=== PATIENT | male | born 1945 | race Caucasian/White ===

== ENCOUNTER 2020-02-04 14:32 | Emergency (ER) | payer MEDICARE, BC ==
[2020-02-04 14:48] VITALS: BP 127/59; PULSE 55
--- NOTE | 2020-02-04 16:13 | EDM.PDOC ---
ED HPI GENERAL MEDICAL PROBLEM - General Chief Complaint: Respiratory Problem Stated Complaint: COVID SYMPTOMS Time Seen by Provider: 02/04/20 14:48 Source of Information: Reports: Patient, RN Notes Reviewed History Limitations: Reports: No Limitations - History of Present Illness INITIAL COMMENTS - FREE TEXT/NARRATIVE: Patient is a 74 year old male presenting to the ER with c/o a 2 week hx of mild cough and fatigue. He states that he came to town for a [place]day [place] and started feeling ill shortly thereafter. He describes his cough as mild and occasional. It is productive; howevver, he is unsure of the color of the sputum. He denies feeling SOB, but states that he has little energy. He spends most of the day sitting in his recliner due to lack of energy. He had some diarrhea 4 days ago, but has had none since. He has ocasional headaches with exertion, that resolve with rest. He denies fever, chills, chest pain, dizziness, SOB, abdominal pain, nausea or vomiting. - Related Data Allergies Allergy/AdvReac Type Severity Reaction Status Date / Time No Known Allergies Allergy Verified 02/04/20 14:48 Home Meds: Home Meds Allopurinol [Zyloprim] 50 mg PO DAILY 10/03/14 [History] Furosemide 0 mg PO DAILY 10/03/14 [History] Insulin Aspart [NovoLOG] 4 units SQ BID 10/03/14 [History] Insulin Detemir [Levemir] 12 units SUBCUT WITHBREAKFAST 10/03/14 [History] Tamsulosin HCl 0.4 mg PO DAILY 10/03/14 [History] amLODIPine Besylate [Amlodipine Besylate] 10 mg PO DAILY 10/03/14 [History] atorvaSTATin [Lipitor] 40 mg PO DAILY 10/03/14 [History] carvediloL [Carvedilol] 6.25 mg PO BID 10/03/14 [History] Finasteride 5 mg PO DAILY 02/04/20 [History] dexAMETHasone [Dexamethasone] 6 mg PO BID 4 Days #8 tab 02/04/20 [Rx] Past Medical History HEENT History: Reports: Cataract, Impaired Vision Other HEENT History: glasses Cardiovascular History: Reports: Bypass, CAD, High Cholesterol, Hypertension, [place] Gastrointestinal History: Reports: Other (See Below) Other Gastrointestinal History: constipation Genitourinary History: Reports: BPH Other Genitourinary History: enlarged prostate Musculoskeletal History: Reports: Amputation, Gout Other Musculoskeletal History: large toe right foot amputated Endocrine/Metabolic History: Reports: Diabetes, Type II, Obesity/BMI 30+ - Infectious Disease History Infectious Disease History: Reports: Measles, Mumps - Past Surgical History HEENT Surgical History: Reports: Cataract Surgery Other Cardiovascular Surgeries/Procedures: 4 bypasses Musculoskeletal Surgical History: Reports: Amputation Social & Family History - Family History Family Medical History: Noncontributory - Tobacco Use Tobacco Use Status *Q: Never Tobacco User - Caffeine Use Caffeine Use: Reports: Soda - Recreational Drug Use Recreational Drug Use: No ED ROS GENERAL - Review of Systems Review Of Systems: See Below Constitutional: Reports: Fatigue. Denies: Fever, Chills HEENT: Reports: No Symptoms Respiratory: Reports: Cough, Sputum. Denies: Shortness of Breath, Pleuritic Chest Pain Cardiovascular: Reports: No Symptoms. Denies: Chest Pain, Dyspnea on Exertion, Lightheadedness, Syncope Endocrine: Reports: No Symptoms GI/Abdominal: Reports: Diarrhea. Denies: Abdominal Pain, Nausea, Vomiting : Reports: No Symptoms Musculoskeletal: Reports: No Symptoms Skin: Reports: No Symptoms Neurological: Reports: Headache. Denies: Confusion, Dizziness Psychiatric: Reports: No Symptoms Hematologic/Lymphatic: Reports: No Symptoms Immunologic: Reports: No Symptoms ED EXAM, GENERAL - Physical Exam Exam: See Below General Appearance: Alert, WD/WN, No Apparent Distress Respiratory/Chest: No Respiratory Distress, Lungs Clear, Normal Breath Sounds, No Accessory Muscle Use, Chest Non-Tender Cardiovascular: Normal Peripheral Pulses, Regular Rate, Rhythm, No Edema, No Gallop, No JVD, No Murmur, No Rub GI/Abdominal: Normal Bowel Sounds, Soft, Non-Tender, No Organomegaly, No Distention, No Abnormal Bruit, No Mass Neurological: Alert, Oriented, CN II-XII Intact, Normal Cognition, Normal Gait, Normal Reflexes, No Motor/Sensory Deficits Psychiatric: Normal Affect, Normal Mood Skin Exam: Warm, Dry, Intact, Normal Color, No Rash #1 Interpretation EKG Date: 02/04/20 Time: 15:07 Rhythm: NSR Rate (Beats/Min): 56 Roann: Normal P-Wave: Present QRS: RBBB ST-T: Normal QT: Normal Course - Vital Signs Last Recorded V/S: Last Vital Signs Temp 97.8 F 02/04/20 14:45 Pulse 55 L 02/04/20 14:45 Resp 16 02/04/20 14:45 BP 127/59 L 02/04/20 14:45 Pulse Ox 92 L 02/04/20 14:45 - Orders/Labs/Meds Orders: Active Orders 24 hr Category Date Time Status Chest 1V Frontal [CR] Stat Exams 02/04/20 14:50 Taken UA W/MICROSCOPIC [URIN] Stat Lab 02/04/20 16:14 Ordered Isolation [COMM] Routine Oth 02/04/20 14:51 Ordered Labs: Laboratory Tests 02/04/20 02/04/20 02/04/20 Range/Units 15:00 15:00 15:00 WBC 9.08 H (4.23-9.07) K/mm3 RBC 3.59 L (4.63-6.08) M/mm3 Hgb 11.2 L D (13.7-17.5) gm/dl Hct 33.6 L (40.1-51.0) % MCV 93.6 H (79.0-92.2) fl MCH 31.2 (25.7-32.2) pg MCHC 33.3 (32.2-35.5) g/dl RDW Std Deviation 43.7 (35.1-43.9) fL Plt Count 324 D (163-337) K/mm3 MPV 9.4 (9.4-12.3) fl Neut % (Auto) 69.0 H (34.0-67.9) % Lymph % (Auto) 13.7 L (21.8-53.1) % [place] % (Auto) 14.3 H (5.3-12.2) % Eos % (Auto) 2.6 (0.8-7.0) Baso % (Auto) 0.3 (0.1-1.2) % Neut # (Auto) 6.26 H (1.78-5.38) K/mm3 Lymph # (Auto) 1.24 L (1.32-3.57) K/mm3 [place] # (Auto) 1.30 H (0.30-0.82) K/mm3 Eos # (Auto) 0.24 (0.04-0.54) K/mm3 Baso # (Auto) 0.03 (0.01-0.08) K/mm3 D-Dimer, Quantitative (0.19-0.50) mg/L Sodium 141 (136-145) mEq/L Potassium 3.6 (3.5-5.1) mEq/L Chloride 104 (98-107) mEq/L Carbon Dioxide 25 (21-32) mEq/L Anion Gap 15.6 H (5-15) BUN 41 H (7-18) mg/dL Creatinine 2.5 H (0.7-1.3) mg/dL Est Cr Clr Drug Dosing 25.53 mL/min Estimated GFR (MDRD) 25 (>60) mL/min BUN/Creatinine Ratio 16.4 (14-18) Glucose 146 H (83-115) mg/dL Lactic Acid (0.4-2.0) mmol/L Calcium 9.5 (8.5-10.1) mg/dL Ferritin (26-388) ng/ml Total Bilirubin 0.7 (0.2-1.0) mg/dL AST 24 (15-37) U/L ALT 26 (16-63) U/L Alkaline Phosphatase 72 (46-116) U/L Lactate Dehydrogenase (85-227) U/L Troponin I < 0.017 (0.00-0.056) ng/mL C-Reactive Protein 14.8 H* (<1.0) mg/dL NT-Pro-B Natriuret Pep 1018 H (0-450) pg/mL Total Protein 7.7 (6.4-8.2) g/dl Albumin 2.8 L (3.4-5.0) g/dl Globulin 4.9 gm/dL Albumin/Globulin Ratio 0.6 L (1-2) SARS-CoV-2 RNA (SARAH) (NEGATIVE) 02/04/20 02/04/20 02/04/20 Range/Units 15:00 15:00 15:00 WBC (4.23-9.07) K/mm3 RBC (4.63-6.08) M/mm3 Hgb (13.7-17.5) gm/dl Hct (40.1-51.0) % MCV (79.0-92.2) fl MCH (25.7-32.2) pg MCHC (32.2-35.5) g/dl RDW Std Deviation (35.1-43.9) fL Plt Count (163-337) K/mm3 MPV (9.4-12.3) fl Neut % (Auto) (34.0-67.9) % Lymph % (Auto) (21.8-53.1) % [place] % (Auto) (5.3-12.2) % Eos % (Auto) (0.8-7.0) Baso % (Auto) (0.1-1.2) % Neut # (Auto) (1.78-5.38) K/mm3 Lymph # (Auto) (1.32-3.57) K/mm3 [place] # (Auto) (0.30-0.82) K/mm3 Eos # (Auto) (0.04-0.54) K/mm3 Baso # (Auto) (0.01-0.08) K/mm3 D-Dimer, Quantitative 6.06 H (0.19-0.50) mg/L Sodium (136-145) mEq/L Potassium (3.5-5.1) mEq/L Chloride (98-107) mEq/L Carbon Dioxide (21-32) mEq/L Anion Gap (5-15) BUN (7-18) mg/dL Creatinine (0.7-1.3) mg/dL Est Cr Clr Drug Dosing mL/min Estimated GFR (MDRD) (>60) mL/min BUN/Creatinine Ratio (14-18) Glucose (83-115) mg/dL Lactic Acid 1.4 (0.4-2.0) mmol/L Calcium (8.5-10.1) mg/dL Ferritin 1531 H (26-388) ng/ml Total Bilirubin (0.2-1.0) mg/dL AST (15-37) U/L ALT (16-63) U/L Alkaline Phosphatase (46-116) U/L Lactate Dehydrogenase (85-227) U/L Troponin I (0.00-0.056) ng/mL C-Reactive Protein (<1.0) mg/dL NT-Pro-B Natriuret Pep (0-450) pg/mL Total Protein (6.4-8.2) g/dl Albumin (3.4-5.0) g/dl Globulin gm/dL Albumin/Globulin Ratio (1-2) SARS-CoV-2 RNA (SARAH) (NEGATIVE) 02/04/20 02/04/20 Range/Units 15:00 16:19 WBC (4.23-9.07) K/mm3 RBC (4.63-6.08) M/mm3 Hgb (13.7-17.5) gm/dl Hct (40.1-51.0) % MCV (79.0-92.2) fl MCH (25.7-32.2) pg MCHC (32.2-35.5) g/dl RDW Std Deviation (35.1-43.9) fL Plt Count (163-337) K/mm3 MPV (9.4-12.3) fl Neut % (Auto) (34.0-67.9) % Lymph % (Auto) (21.8-53.1) % [place] % (Auto) (5.3-12.2) % Eos % (Auto) (0.8-7.0) Baso % (Auto) (0.1-1.2) % Neut # (Auto) (1.78-5.38) K/mm3 Lymph # (Auto) (1.32-3.57) K/mm3 [place] # (Auto) (0.30-0.82) K/mm3 Eos # (Auto) (0.04-0.54) K/mm3 Baso # (Auto) (0.01-0.08) K/mm3 D-Dimer, Quantitative (0.19-0.50) mg/L Sodium (136-145) mEq/L Potassium (3.5-5.1) mEq/L Chloride (98-107) mEq/L Carbon Dioxide (21-32) mEq/L Anion Gap (5-15) BUN (7-18) mg/dL Creatinine (0.7-1.3) mg/dL Est Cr Clr Drug Dosing mL/min Estimated GFR (MDRD) (>60) mL/min BUN/Creatinine Ratio (14-18) Glucose (83-115) mg/dL Lactic Acid (0.4-2.0) mmol/L Calcium (8.5-10.1) mg/dL Ferritin (26-388) ng/ml Total Bilirubin (0.2-1.0) mg/dL AST (15-37) U/L ALT (16-63) U/L Alkaline Phosphatase (46-116) U/L Lactate Dehydrogenase 224 (85-227) U/L Troponin I (0.00-0.056) ng/mL C-Reactive Protein (<1.0) mg/dL NT-Pro-B Natriuret Pep (0-450) pg/mL Total Protein (6.4-8.2) g/dl Albumin (3.4-5.0) g/dl Globulin gm/dL Albumin/Globulin Ratio (1-2) SARS-CoV-2 RNA (SARAH) Positive H (NEGATIVE) - Re-Assessments/Exams Free Text/Narrative Re-Assessment/Exam: 02/04/20 17:33Patient is a 74-year-old male presenting to the emergency department with complaints of fatigue, occasional active cough, and occasional headache. Symptoms have been present for just under 2 weeks. He states 2 weeks ago tomorrow he went to a birthday libertarian and went shopping in town here. Since that time he has been at home. His symptoms are concerning for diagnosis of Covid, therefore we will complete a complete Covid work-up including CBC, CMP, CRP, troponin, D-dimer, ferritin, LDH, chest x-ray, EKG, influenza test, and COVID-19 test. 02/04/20 17:37 Hematology significant for WBC minimally elevated at 9.08, hemoglobin 11.2, D- dimer 6.06, anion gap 15.6, BUN 41, creatinine 2.5, ferritin 1531, CRP 14.8, proBNP 1018. Chest x-ray showed right airspace disease, possibly involving multiple lobes suspicious for pneumonia. No pulmonary edema. Influenza screen was negative, however coronavirus test was positive. Patient's D-dimer is significant elevated at 6.06, however he does have stage IV kidney failure as well as a positive Covid test which is likely the cause of this. Patient is not tachycardic or hypoxic, therefore a CT scan of his chest is not indicated at th is time. Oxygen saturations have maintained between 90 to 95% on room air throughout his stay in the ER. We will start him on dexamethasone due to his chronic underlying conditions and age. Recommend that he purchase a pulse oximeter to monitor his oxygen saturations at home. Discussed strict return precautions with him and he verbalized understanding. We have called [facility] and they do have pulse oximeter is available. I will send his prescription for dexamethasone there so that he may slat pickler a pulse oximeter on his way back to [place]. Discharge instructions as documented. Departure - Departure Time of Disposition: 17:38 Disposition: Home, Self-Care 01 Condition: Good Clinical Impression: COVID-19 - Discharge Information *PRESCRIPTION DRUG MONITORING PROGRAM REVIEWED*: No *COPY OF PRESCRIPTION DRUG MONITORING REPORT IN PATIENT BUFFY: No Prescriptions: dexAMETHasone [Dexamethasone] 6 mg PO BID 4 Days #8 tab Instructions: COVID-19 Frequently Asked Questions, COVID-19 Referrals: PCP,None [Primary Care Provider] - Forms: ED Department Discharge Additional Instructions: You were seen in the emergency department today for fatigue, occasional cough, and occasional headache. Your work-up included blood work, chest x-ray, an EKG, and influenza and coronavirus test. Results of your work-up show that you do have COVID-19. Your oxygen saturations throughout your stay in the emergency department were normal. You have been started on a steroid, dexamethasone, to help treat the inflammation associated with COVID-19. This prescription has been sent to [facility]. We did call up there and they also have a pulse oximeter available, therefore you should purchase that when you slat pickler your medication. Recommend that you check your oxygen saturations at home intermittently throughout the day. If you are maintaining an oxygen saturation below 90%, you should return to the emergency department for reevaluation. Also if you experience any other new or worsening symptoms of concern, please return to the emergency department to be reevaluated. Sepsis Event Note (ED) - Evaluation Sepsis Screening Result: No Definite Risk - Focused Exam Vital Signs: Vital Signs Temp Pulse Resp BP Pulse Ox 02/04/20 14:45 97.8 F 55 L 16 127/59 L 92 L - My Orders Last 24 Hours: My Active Orders 02/04/20 14:50 Chest 1V Frontal [CR] Stat 02/04/20 14:51 Isolation [COMM] Routine 02/04/20 16:14 UA W/MICROSCOPIC [URIN] Stat - Assessment/Plan Last 24 Hours: My Active Orders 02/04/20 14:50 Chest 1V Frontal [CR] Stat 02/04/20 14:51 Isolation [COMM] Routine 02/04/20 16:14 UA W/MICROSCOPIC [URIN] Stat
== END 2020-02-04 18:25 | disposition home or self-care (01) ==
LOC: JD.ED 14:32
DX: U07.1 COVID-19 (principal); I25.10 Atherosclerotic heart disease of native coronary artery without angina pectoris; E78.00 Pure hypercholesterolemia, unspecified; I10 Essential (primary) hypertension; I25.2 Old myocardial infarction; M10.9 Gout, unspecified; E11.9 Type 2 diabetes mellitus without complications; E66.9 Obesity, unspecified; Z95.1 Presence of aortocoronary bypass graft; Z79.4 Long term (current) use of insulin; Z79.899 Other long term (current) drug therapy
CPT/HCPCS: 36415; 71045; 80053; 82728; 83605; 83615; 83880; 84484; 85025; 85379; 86140; 87804; 93005; 99284; U0002; 93010; 99283

== ENCOUNTER 2020-09-27 17:54 | Emergency (ER) | payer MEDICARE, BC ==
[2020-09-27 18:06] VITALS: BP 174/79; PULSE 72
--- NOTE | 2020-09-27 18:40 | EDM.PDOC ---
ED HPI GENERAL MEDICAL PROBLEM - General Chief Complaint: Lower Extremity Injury/Pain Stated Complaint: hip pain Time Seen by Provider: 09/27/20 18:26 Source of Information: Reports: Patient History Limitations: Reports: No Limitations - History of Present Illness INITIAL COMMENTS - FREE TEXT/NARRATIVE: 75-year-old male presents to the ED complaining of left hip pain. No known injuries or falls. He states he awoke this morning and had difficulty weightbearing particularly feeling it along his posterior buttock. Over the last 6 to 8 hours the pain is progressively worsened. No relief with 1 Advil 200 mg strength tablet. 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 He states the first step is approximately 2 feet off the ground and he has to step up with that leg and then pull with his arms to get up into the sprayer causing a lot of pressure to be placed on the left lower extremity to get up into the machine. He has no known arthritis and no prosthesis of either hip. He denies being on blood thinners. He has a history of gout and is on allopurinol for this. He has not had a gout attack for several years. It usually bothered his feet and toes. He denies any fever chills. He states he is having pain in his posterior buttock hip area at rest but is made worse with walking and weightbearing Onset: Gradual Onset Date: 09/26/20 (Very minimal discomfort left posterior buttock hip area yet last evening but much worse this morning upon getting up and worse as the day is gone on) Duration: Hour(s):, Getting Worse Location: Reports: Lower Extremity, Left (But talk posterior hip pain) Quality: Reports: Ache, Throbbing Severity: Moderate Improves with: Reports: Rest (Slightly better with rest but still having discomfort at rest.) Worsens with: Reports: Other Context: Denies: Activity (Weightbearing and walking cause worsening of pain), Exercise, Lifting, Sick Contact, Trauma, Other Associated Symptoms: Denies: No Other Symptoms, Confusion, Chest Pain, Cough, cough w sputum, Diaphoresis, Fever/Chills, Headaches, Loss of Appetite, Malaise, Nausea/Vomiting, Rash, Seizure, Shortness of Breath, Syncope, Weakness Treatments [employer]IL [employer]ATION [employer]ATOR: Reports: NSAIDS (Patient took 1 Advil 200 mg strength today with no relief of pain.) Left Hip Pain Score (Numeric/FACES): 10 - Related Data Allergies Allergy/AdvReac Type Severity Reaction Status Date / Time No Known Allergies Allergy Verified 09/27/20 18:06 Home Meds: Home Meds Allopurinol [Zyloprim] 50 mg PO DAILY 10/03/14 [History] Furosemide 0 mg PO DAILY 10/03/14 [History] Insulin Aspart [NovoLOG] 4 units SQ BID 10/03/14 [History] Insulin Detemir [Levemir] 12 units SUBCUT WITHBREAKFAST 10/03/14 [History] Tamsulosin HCl 0.4 mg PO DAILY 10/03/14 [History] amLODIPine Besylate [Amlodipine Besylate] 10 mg PO DAILY 10/03/14 [History] atorvaSTATin [Lipitor] 40 mg PO DAILY 10/03/14 [History] carvediloL [Carvedilol] 6.25 mg PO BID 10/03/14 [History] Finasteride 5 mg PO DAILY 02/04/20 [History] dexAMETHasone [Dexamethasone] 6 mg PO BID 4 Days #8 tab 02/04/20 [Rx] Hydrocodone/Acetaminophen [Hydrocodone-Acetamin 5-325 mg] 1 each PO Q6H PRN #15 tablet 09/27/20 [Rx] predniSONE [Prednisone] 20 mg PO ASDIRECTED #12 tablet 09/27/20 [Rx] Past Medical History HEENT History: Reports: Cataract, Impaired Vision Other HEENT History: glasses Cardiovascular History: Reports: Bypass, CAD, High Cholesterol, Hypertension, NM Gastrointestinal History: Reports: Other (See Below) Other Gastrointestinal History: constipation Genitourinary History: Reports: BPH Other Genitourinary History: enlarged prostate Musculoskeletal History: Reports: Amputation, Gout Other Musculoskeletal History: large toe right foot amputated Endocrine/Metabolic History: Reports: Diabetes, Type II (Controlled with Levemir 12 units subcu in the a.m. and 4 units of regular insulin with meals), Obesity/BMI 30+ - Infectious Disease History Infectious Disease History: Reports: Measles, Mumps Other Infectious Disease History: Patient had COVID-19 illness diagnosed February 04, 2020 - Past Surgical History HEENT Surgical History: Reports: Cataract Surgery Other Cardiovascular Surgeries/Procedures: 4 bypasses Musculoskeletal Surgical History: Reports: Amputation Social & Family History - Family History Family Medical History: No Pertinent Family History - Tobacco Use Tobacco Use Status *Q: Never Tobacco User - Caffeine Use Caffeine Use: Reports: Soda - Recreational Drug Use Recreational Drug Use: No - Living Situation & Occupation Living situation: Reports: Single 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 Denies: Chest Pain, Irregular Heart Rate, Lightheadedness GI/Abdominal: Reports: No Symptoms Genitourinary: Reports: Other (Frequency nocturia x3 known BPH) Musculoskeletal: Reports: Neck Pain, Shoulder Pain, Back Pain, Other (History of gout involving his feet) Skin: Reports: No Symptoms Neurological: Reports: No Symptoms Psychiatric: Reports: No Symptoms ED EXAM, GENERAL - Physical Exam Exam: See Below Exam Limited By: No Limitations General Appearance: Alert, WD/WN, No Apparent Distress, Other (Temperature is 36.5 degrees. Heart rate 72 and sinus. Respiratory is 18 with O2 sats of 95 to 96% room air. BP slightly elevated systolically at 174/79.) Eye Exam: Bilateral Eye: Normal Inspection (No scleral icterus or blepharal pallor.) Respiratory/Chest: No Respiratory Distress, Lungs Clear, No Accessory Muscle Use, Decreased Breath Sounds (Breath sounds are slightly diminished to both lower lung robert without any adventitial sounds). No: Rales, Rhonchi, Wheezing Cardiovascular: Regular Rate, Rhythm, No Edema, No Gallop, No Murmur, No Rub. No: Normal Peripheral Pulses Peripheral Pulses: 1+: Posterior Tibial (L), Posterior Tibial (R), Dorsalis Pedis (L), Dorsalis Pedis (R), 2+: Carotid (L), Carotid (R) GI/Abdominal: Normal Bowel Sounds, Soft, Non-Tender, No Organomegaly, No Distention, No Abnormal Bruit, Other. No: Guarding (Mild obesity. Nontender), Rigid, Rebound, Tender Back Exam: Decreased Range of Motion, Other (Patient has very little pain on firm palpation over his facet joints lumbar spine. On standing at the bedside he has marked pain throughout the superior two thirds of the left sacroiliac joint as compared to the right. Very minimal tenderness over the greater tuberosity on the left hip. This is a). No: CVA Tenderness (L), CVA Tenderness (R) Extremities: Normal Inspection, Non-Tender, No Pedal Edema, Other (Patient has no evidence of significant arthritic changes in his knees. He has very minimal limited external and internal rotation of both hips with no worsening of his pain on this range of motion. His true hip joints are not the source of his pain) Neurological: Alert, Oriented, CN II-XII Intact, Normal Cognition, Other (Limping gait) Psychiatric: Normal Affect, Normal Mood Skin Exam: Warm, Dry, Intact, Normal Color, No Rash Course - Vital Signs Last Recorded V/S: Last Vital Signs Temp 36.5 C 09/27/20 18:03 Pulse 72 09/27/20 18:03 Resp 18 09/27/20 18:03 BP 174/79 H 09/27/20 18:03 Pulse Ox 95 09/27/20 18:03 - Orders/Labs/Meds Orders: Active Orders 24 hr Category Date Time Status Pelvis 1V or 2V [CR] Stat Exams 09/27/20 18:33 Taken - Radiology Interpretation Free Text/Narrative:: 75-year-old male presents to the ED complaining of left hip pain. He states was a little sore last night before going to bed but much more tender and sore today making it difficult to walk since doing chores this morning. It is slowly gotten worse as the day is gone on. On examination he has near full range of motion of both hips with very minimal loss of external rotation bilaterally with no pain in the true hip joint. I can also logroll both hips and knees without any pain in his true hip joint.. Minimal tenderness over the greater trochanteric process left hip. No pain in the sacroiliac joint bilaterally. Mild tenderness over the ischial tuberosity and along the posterior iliac crest at the insertion site of his hamstring muscles. 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 Clinically he appears to have strained or pulled his hamstring muscles in the left posterior thigh buttock area. An AP view of his pelvis will be obtained. - Re-Assessments/Exams Free Text/Narrative Re-Assessment/Exam: 09/27/20 19:00: X-ray of the patient's pelvis reveals no abnormalities within the true pelvis and no osteolytic lesions or signs of Paget's disease. He does have mild degenerative arthritic change in both hip joints particularly inferior aspects of both hip joints with loss of cartilage and near [id number] situation. On repeat examination of the patient standing his pain is coming from his left sacroiliac joint particular the superior two thirds of the joint. I am therefore going to place him on [place] tablets 5/325 mg strength 1 tablet every 6 hours as necessary for pain relief. I am also going to place him on prednisone 20 mg twice daily with breakfast and supper for 4 days and then once in the morning only for another 4 days to alleviate inflammation. NSAIDs are contraindicated due to stage IV renal insufficiency secondary to diabetic nephropathy. He states his sugars did go high when he was treated with dexamethasone last January for Covid but he was able to cope with this with higher doses of regular insulin and he will do this again. Failing treatment with short course of steroid he may require a direct injection of Kenalog into the SI joint which could be performed by Dr. Montero or Dr. Garza. Departure - Departure Time of Disposition: 19:05 Disposition: Home, Self-Care 01 Condition: Fair Clinical Impression: Sacroiliitis - Discharge Information *PRESCRIPTION DRUG MONITORING PROGRAM REVIEWED*: Not Applicable *COPY OF PRESCRIPTION DRUG MONITORING REPORT IN PATIENT BUFFY: Not Applicable Prescriptions: Hydrocodone/Acetaminophen [Hydrocodone-Acetamin 5-325 mg] 1 each PO Q6H PRN #15 tablet PRN Reason: pain relief predniSONE [Prednisone] 20 mg PO ASDIRECTED #12 tablet Instructions: Hamstring Strain Referrals: Talib Brewer MD [Primary Care Provider] - Forms: ED Department Discharge Additional Instructions: Evaluation in the emergency room today in regards to complaints of left hip pain starting a little bit last evening but much worse this morning after getting up and trying to do chores outside. On examination your true hip joint has no signs of inflammation with only slight loss of normal range of motion both internally and externally which should be normal for your age. Examination in the standing position revealed that the pain was coming from the left sacroiliac joint where your pelvis joins onto your back bone or sacrum. An x-ray of your pelvis reveals no disease process involving the bones other than mild arthritis in the lower portions of both hip joints. Treatment is limited due to known poor kidney function secondary to chronic diabetes. He cannot take medicines like Motrin, Aleve or other nonsteroidal anti-inflammatory medicines because they are very bad for your kidneys. Decision made to place you on low-dose prednisone starting with 20 mg in the morning and at suppertime for 4 days and then 1 tablet only in the morning for another 4 days to relieve pain and inflammation left SI joint. You may also use pain medication Hydrocodone 5/325mg -1 tablet every 6 hours as needed for pain relief. The prednisone should start to work in approximately 36 to 48 hours to relieve a good portion of your pain as the inflammation settles down. I would anticipate that this will take about 10 days to settle down completely. If you are not completely back to normal in 10 days time this joint could be injected directly with steroid. I would suggest follow-up with Dr. Garza orthopedic surgeon for this procedure. You could call his office at [phone] to arrange an appointment. Sepsis Event Note (ED) - Evaluation Sepsis Screening Result: No Definite Risk - Focused Exam Vital Signs: Vital Signs Temp Pulse Resp BP Pulse Ox 09/27/20 18:03 36.5 C 72 18 174/79 H 95 - My Orders Last 24 Hours: My Active Orders 09/27/20 18:33 Pelvis 1V or 2V [CR] Stat - Assessment/Plan Last 24 Hours: My Active Orders 09/27/20 18:33 Pelvis 1V or 2V [CR] Stat
--- NOTE | 2020-09-27 20:06 | CR ---
Pelvis: AP view of the pelvis was obtained. Comparison: No prior pelvis exam is available. Joint spaces within both hips are maintained. Degenerative change is partially seen within the lower lumbar spine. Sacroiliac joints appear within normal limits. No acute fracture or other abnormality is appreciated. Impression: 1. Degenerative change is partially seen within the lower lumbar spine. 2. AP pelvis study is otherwise unremarkable. Diagnostic code #2
== END 2020-09-27 19:22 | disposition home or self-care (01) ==
LOC: JD.ED 17:54
DX: M46.1 Sacroiliitis, not elsewhere classified (principal); I25.10 Atherosclerotic heart disease of native coronary artery without angina pectoris; E78.00 Pure hypercholesterolemia, unspecified; I10 Essential (primary) hypertension; I25.2 Old myocardial infarction; E11.9 Type 2 diabetes mellitus without complications; E66.9 Obesity, unspecified; Z68.30 Body mass index [BMI] 30.0-30.9, adult; Z86.16 Personal history of COVID-19; Z79.4 Long term (current) use of insulin; Z79.899 Other long term (current) drug therapy
CPT/HCPCS: 72170; 72170-26; 99283; 99283-25

== ENCOUNTER 2020-10-11 11:19 | Emergency (ER) | payer MEDICARE, BC ==
[2020-10-11 11:38] VITALS: BP 175/85; PULSE 66
--- NOTE | 2020-10-11 11:58 | EDM.PDOC ---
ED HPI GENERAL MEDICAL PROBLEM - General Chief Complaint: Lower Extremity Injury/Pain Stated Complaint: LT HIP/LEG PAIN Time Seen by Provider: 10/11/20 11:34 Source of Information: Reports: Patient History Limitations: Reports: No Limitations - History of Present Illness INITIAL COMMENTS - FREE TEXT/NARRATIVE: 75 yo M with L low back/hip/leg pain. He has had it for at least a couple of weeks, it isn't getting better. No known injury. Seen here and thought to have hamstring strain and SI joint inflammation. Rx prednisone taper and hydrocodone. He didn't feel like the prednisone helped. Hydrocodone helped but he is out of this medication. Pain is in very low back on the left, no midline pain. Also in lateral hip and groin area. Pain is much worse with walking and better with rest. However, pain last night was severe enough he couldn't sleep. He doesn't have pain radiating down his legs. He denies additional pain. No fever/recent illness. He is able to ambulate but is starting to slightly limp. No falls. No relief with acetaminophen alone. Left Hip Pain Score (Numeric/FACES): 9 - Related Data Allergies Allergy/AdvReac Type Severity Reaction Status Date / Time No Known Allergies Allergy Verified 10/11/20 11:27 Home Meds: Home Meds Allopurinol [Zyloprim] 50 mg PO DAILY 10/03/14 [History] Furosemide 0 mg PO DAILY 10/03/14 [History] Insulin Aspart [NovoLOG] 4 units SQ BID 10/03/14 [History] Insulin Detemir [Levemir] 12 units SUBCUT WITHBREAKFAST 10/03/14 [History] Tamsulosin HCl 0.4 mg PO DAILY 10/03/14 [History] amLODIPine Besylate [Amlodipine Besylate] 10 mg PO DAILY 10/03/14 [History] atorvaSTATin [Lipitor] 40 mg PO DAILY 10/03/14 [History] carvediloL [Carvedilol] 6.25 mg PO BID 10/03/14 [History] Finasteride 5 mg PO DAILY 02/04/20 [History] Hydrocodone/Acetaminophen [Hydrocodone-Acetamin 5-325 mg] 1 each PO QID PRN #15 tablet 10/11/20 [Rx] Past Medical History HEENT History: Reports: Cataract, Impaired Vision Other HEENT History: glasses Cardiovascular History: Reports: Bypass, CAD, High Cholesterol, Hypertension, MD Respiratory History: Reports: None Gastrointestinal History: Reports: Other (See Below) Other Gastrointestinal History: constipation Genitourinary History: Reports: BPH Other Genitourinary History: enlarged prostate Musculoskeletal History: Reports: Amputation, Gout Other Musculoskeletal History: large toe right foot amputated Neurological History: Reports: None Psychiatric History: Reports: None Endocrine/Metabolic History: Reports: Diabetes, Type II, Obesity/BMI 30+ Hematologic History: Reports: None Immunologic History: Reports: None Oncologic (Cancer) History: Reports: None Dermatologic History: Reports: None - Infectious Disease History Infectious Disease History: Reports: Chicken Pox, Measles, Mumps, Novel Coronavirus Other Infectious Disease History: Patient had COVID-19 illness diagnosed February 04, 2020 - Past Surgical History HEENT Surgical History: Reports: Cataract Surgery Other Cardiovascular Surgeries/Procedures: 4 bypasses Male Surgical History: Reports: None Musculoskeletal Surgical History: Reports: Amputation Social & Family History - Family History Family Medical History: No Pertinent Family History - Caffeine Use Caffeine Use: Reports: Soda - Recreational Drug Use Recreational Drug Use: No - Living Situation & Occupation Living situation: Reports: Single 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) Review of Systems - Review of Systems Review Of Systems: See Below Constitutional: Denies: Fever Eyes: Reports: No Symptoms Ears: Reports: No Symptoms Nose: Reports: No Symptoms Mouth/Throat: Reports: No Symptoms Respiratory: Reports: No Symptoms Cardiovascular: Reports: No Symptoms GI/Abdominal: Reports: No Symptoms Genitourinary: Reports: No Symptoms Musculoskeletal: Reports: Back Pain Skin: Reports: No Symptoms Neurological: Denies: Numbness, Weakness Psychiatric: Reports: No Symptoms ED EXAM, GENERAL - Physical Exam Exam: See Below Exam Limited By: No Limitations General Appearance: Alert, WD/WN, No Apparent Distress Eye Exam: Bilateral Eye: Normal Inspection Ears: Normal External Exam Nose: Normal Inspection Throat/Mouth: Normal Inspection, Normal Oropharynx, Normal Voice Head: Atraumatic, Normocephalic Neck: Normal Inspection Respiratory/Chest: No Respiratory Distress Cardiovascular: Normal Peripheral Pulses, Regular Rate, Rhythm, No Edema GI/Abdominal: Soft, Non-Tender, No Distention Back Exam: Normal Inspection, Other (+mild paraspinal TTP of L distal lumbar spine area and SI joint area, no skin abnormality no palpable mass, straight leg neg). No: Vertebral Tenderness Extremities: Normal Inspection, Normal Range of Motion, Other (+lateral L hip TTP over greater trochanter, no anterior hip TTP, good ROM at the hip, no knee TTP, distal motor/sensation/perfusion intact, 2+DP pulse) Neurological: Alert, Oriented, Normal Cognition, No Motor/Sensory Deficits Psychiatric: Normal Affect, Normal Mood Skin Exam: Warm, Dry, Intact, Normal Color, No Rash Course - Vital Signs Last Recorded V/S: Last Vital Signs Temp 37.0 C 10/11/20 11:35 Pulse 66 10/11/20 11:35 Resp 16 10/11/20 11:35 BP 175/85 H 10/11/20 11:35 Pulse Ox 100 10/11/20 11:35 - Re-Assessments/Exams Free Text/Narrative Re-Assessment/Exam: 10/11/20 14:15 L hip XR unremarkable, pelvis xr at prior visit was unremarkable. no bony abnormalities. no infectious symptoms. pain localized to SI area and lateral hip area. will refill hydrocodone for pain control, referred to ortho for further care. discussed ED return precautions. Departure - Departure Time of Disposition: 12:48 Disposition: Home, Self-Care 01 Clinical Impression: Left hip pain - Discharge Information Prescriptions: Hydrocodone/Acetaminophen [Hydrocodone-Acetamin 5-325 mg] 1 each PO QID PRN #15 tablet PRN Reason: Pain Instructions: Hip Pain Referrals: Talib Brewer MD [Primary Care Provider] - Forms: ED Department Discharge Additional Instructions: 1. Take acetaminophen for pain. Take hydrocodone as needed for severe pain, especially if pain is keeping you up at night. 2. Follow up with Dr. Garza or orthopedist of your choice. Call [phone] to schedule. 3. Return to the ED as needed for severe/uncontrolled pain, difficulty walking, fever, or other concerning symptoms Sepsis Event Note (ED) - Evaluation Sepsis Screening Result: No Definite Risk - Focused Exam Vital Signs: Vital Signs Temp Pulse Resp BP Pulse Ox 10/11/20 11:35 37.0 C 66 16 175/85 H 100
--- NOTE | 2020-10-11 12:29 | CR ---
Left hip: AP and frog leg lateral views of the left hip were obtained. Comparison: Prior pelvis study of 09/27/20. Joint space within the left hip is preserved. No fracture or other bony abnormality is seen. Impression: 1. Nothing acute is seen on 2 view left hip study. Diagnostic code #1
== END 2020-10-11 13:00 | disposition home or self-care (01) ==
LOC: JD.ED 11:19
DX: M25.552 Pain in left hip (principal); I25.10 Atherosclerotic heart disease of native coronary artery without angina pectoris; E78.00 Pure hypercholesterolemia, unspecified; I10 Essential (primary) hypertension; I25.2 Old myocardial infarction; E11.9 Type 2 diabetes mellitus without complications; E66.9 Obesity, unspecified; Z68.32 Body mass index [BMI] 32.0-32.9, adult; Z79.4 Long term (current) use of insulin; Z79.899 Other long term (current) drug therapy; Z95.1 Presence of aortocoronary bypass graft
CPT/HCPCS: 73502-26-LT; 73502-LT; 99283; 99283-25

== ENCOUNTER 2020-10-31 10:32 | Emergency (ER) | payer MEDICARE, BC ==
[2020-10-31 10:45] VITALS: BP 144/84; PULSE 66
--- NOTE | 2020-10-31 11:35 | EDM.PDOC ---
ED HPI GENERAL MEDICAL PROBLEM - General Chief Complaint: Lower Extremity Injury/Pain Stated Complaint: LEFT HIP PAIN Time Seen by Provider: 10/31/20 11:04 Source of Information: Reports: Patient, RN Notes Reviewed History Limitations: Reports: No Limitations - History of Present Illness INITIAL COMMENTS - FREE TEXT/NARRATIVE: Patient is a 75-year-old male presenting to the emergency department with complaints of low back pain that radiates down his left leg. He has been having problems with this for quite some time. He denies any known injuries to the area. He was seen in the walk-in clinic yesterday and prescribed meloxicam and tramadol for pain. He has been using these with little relief. He had been previously prescribed hydrocodone with Tylenol which he states is the only thing that takes the edge off the pain. He has seen a chiropractor who ordered an x- ray 6 days ago. Result this x-ray showed degenerative changes but no acute abnormalities. He is scheduled to see physical therapy on November 09. Has follow- up scheduled with his primary care provider, Dr. Corona, on November 20 which was his first available appointment. Denies any bowel or bladder dysfunction. Left Hip Pain Score (Numeric/FACES): 8 - Related Data Allergies Allergy/AdvReac Type Severity Reaction Status Date / Time No Known Allergies Allergy Verified 10/31/20 10:45 Home Meds: Home Meds Allopurinol [Zyloprim] 50 mg PO DAILY 10/03/14 [History] Furosemide 40 mg PO DAILY 10/03/14 [History] Insulin Aspart [NovoLOG] 4 units SQ BID 10/03/14 [History] Insulin Detemir [Levemir] 12 units SUBCUT WITHBREAKFAST 10/03/14 [History] Tamsulosin HCl 0.4 mg PO DAILY 10/03/14 [History] amLODIPine Besylate [Amlodipine Besylate] 10 mg PO DAILY 10/03/14 [History] atorvaSTATin [Lipitor] 40 mg PO DAILY 10/03/14 [History] carvediloL [Carvedilol] 6.25 mg PO BID 10/03/14 [History] Finasteride 5 mg PO DAILY 02/04/20 [History] Hydrocodone/Acetaminophen [Hydrocodone-Acetamin 5-325 mg] 1 each PO Q4H PRN #15 tablet 07/20/21 [Rx] Meloxicam 15 mg PO DAILY 10/31/20 [History] traMADol [Ultram] 1 tab PO ASDIRECTED PRN 10/31/20 [History] Past Medical History HEENT History: Reports: Cataract, Impaired Vision Other HEENT History: glasses Cardiovascular History: Reports: Bypass, CAD, High Cholesterol, Hypertension, [place] Respiratory History: Reports: None Gastrointestinal History: Reports: Other (See Below) Other Gastrointestinal History: constipation Genitourinary History: Reports: BPH Other Genitourinary History: enlarged prostate Musculoskeletal History: Reports: Amputation, Gout Other Musculoskeletal History: large toe right foot amputated Neurological History: Reports: None Psychiatric History: Reports: None Endocrine/Metabolic History: Reports: Diabetes, Type II, Obesity/BMI 30+ Hematologic History: Reports: None Immunologic History: Reports: None Oncologic (Cancer) History: Reports: None Dermatologic History: Reports: None - Infectious Disease History Infectious Disease History: Reports: Chicken Pox, Measles, Mumps, Novel Coronavirus Other Infectious Disease History: Patient had COVID-19 illness diagnosed February 04, 2020 - Past Surgical History HEENT Surgical History: Reports: Cataract Surgery Other Cardiovascular Surgeries/Procedures: 4 bypasses Male Surgical History: Reports: None Musculoskeletal Surgical History: Reports: Amputation Social & Family History - Family History Family Medical History: No Pertinent Family History - Tobacco Use Tobacco Use Status *Q: Former Tobacco User Used Tobacco, but Quit: Yes Month/Year Tobacco Last Used: 04/1979 - Caffeine Use Caffeine Use: Reports: Soda - Recreational Drug Use Recreational Drug Use: No - Living Situation & Occupation Living situation: Reports: Single 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 ED EXAM, GENERAL - Physical Exam Exam: See Below Exam Limited By: No Limitations General Appearance: Alert, WD/WN, No Apparent Distress Respiratory/Chest: No Respiratory Distress, Lungs Clear, Normal Breath Sounds, No Accessory Muscle Use, Chest Non-Tender Cardiovascular: Normal Peripheral Pulses, Regular Rate, Rhythm, No Edema, No Gallop, No JVD, No Murmur, No Rub Back Exam: Normal Inspection, Full Range of Motion, Vertebral Tenderness (L4- S2). No: CVA Tenderness (L), CVA Tenderness (R), Paraspinal Tenderness Neurological: Alert, Oriented, CN II-XII Intact, Normal Cognition, Normal Gait, Normal Reflexes, No Motor/Sensory Deficits Psychiatric: Normal Affect, Normal Mood Skin Exam: Warm, Dry, Intact, Normal Color, No Rash Course - Vital Signs Last Recorded V/S: Last Vital Signs Temp 97.5 F 10/31/20 10:39 Pulse 66 10/31/20 10:39 Resp 18 10/31/20 10:39 BP 144/84 H 10/31/20 10:39 Pulse Ox 99 10/31/20 10:39 - Re-Assessments/Exams Free Text/Narrative Re-Assessment/Exam: Patient is a 75-year-old male presenting to the emergency department with complaints of low back pain with radiation down his left leg and hip. Reports that he has been having problems with this for quite some time. He has had no new injuries to the area. X-ray was completed 6 days ago and shows degenerative changes but no acute abnormalities. Was seen in walk-in yesterday started on meloxicam and tramadol. States this is not helping. On exam, he has tenderness from L4-S2. There is no tenderness paraspinal or over the SI joints. He is scheduled to see physical therapy on 09 November. I will write a short prescription of hydrocodone with Tylenol. Recommend that he continue the meloxicam but not take the tramadol and hydrocodone together. He verbalized understanding of this. Discharge instructions as documented. Departure - Departure Time of Disposition: 11:32 Disposition: Home, Self-Care 01 Condition: Good Clinical Impression: Lumbago with sciatica, left side Qualifiers: Chronicity: acute Back pain laterality: left Qualified Code(s): M54.42 - Lumbago with sciatica, left side - Discharge Information *PRESCRIPTION DRUG MONITORING PROGRAM REVIEWED*: Yes *COPY OF PRESCRIPTION DRUG MONITORING REPORT IN PATIENT BUFFY: No Prescriptions: Hydrocodone/Acetaminophen [Hydrocodone-Acetamin 5-325 mg] 1 each PO Q4H PRN #15 tablet PRN Reason: Pain Instructions: Sciatica, [id number] Referrals: Talib Brewer MD [Primary Care Provider] - Additional Instructions: You were seen in the emergency department for ongoing low back and left hip pain with radiation down your left leg. Prescription has been sent for hydrocodone with Tylenol. Use this only as prescribed. You may continue to take the meloxicam as previously prescribed. Do not take the hydrocodone and tramadol together. Do not work or drive for 12 hours after taking this medication as it can be sedating. You may apply heat intermittently to your low back. Keep your appointment as scheduled with physical therapy on 09 November as well as your appointment with your primary care provider Dr. Corona in November. Return to ER for any new or worsening symptoms. Sepsis Event Note (ED) - Evaluation Sepsis Screening Result: No Definite Risk - Focused Exam Vital Signs: Vital Signs Temp Pulse Resp BP Pulse Ox 10/31/20 10:39 97.5 F 66 18 144/84 H 99
== END 2020-10-31 11:42 | disposition home or self-care (01) ==
LOC: JD.ED 10:32
DX: M54.42 Lumbago with sciatica, left side (principal); I25.810 Atherosclerosis of coronary artery bypass graft(s) without angina pectoris; E78.00 Pure hypercholesterolemia, unspecified; I10 Essential (primary) hypertension; I25.2 Old myocardial infarction; M10.9 Gout, unspecified; E11.9 Type 2 diabetes mellitus without complications; E66.9 Obesity, unspecified; Z68.31 Body mass index [BMI] 31.0-31.9, adult; Z86.16 Personal history of COVID-19; Z87.891 Personal history of nicotine dependence; Z79.4 Long term (current) use of insulin; Z79.899 Other long term (current) drug therapy
CPT/HCPCS: 99283